=== PATIENT | male | born 1960 | race Two or more races ===

== ENCOUNTER 2020-02-14 05:10 | Day surgery (SDC) | payer OTHER ==
[2020-02-14] MEDS ORDERED: IBU800 MG PO (12:45)
[2020-02-14] MEDS ORDERED: PERCOCET 5-3251 EACH PO (12:45)
[2020-02-14] MEDS ORDERED: SURFAK240 M1 PO (12:46)
== END 2020-02-14 18:00 | disposition home or self-care (01) ==
LOC: CIR.AMB 05:10
PROVIDERS: ATTEND Surgery
DX: K42.9 Umbilical hernia without obstruction or gangrene (principal); K43.6 Other and unspecified ventral hernia with obstruction, without gangrene; D17.5 Benign lipomatous neoplasm of intra-abdominal organs; Z20.828 Contact with and (suspected) exposure to other viral communicable diseases